=== PATIENT | female | born 1965 | race African-American/Black ===

== ENCOUNTER 2025-01-05 13:48 | Emergency (ER) | payer MEDICAID ==
[~2025-01-05] VITALS: Ht 162.6 cm; Wt 75.0 kg
[2025-01-05 14:01] VITALS: BP 126/42; TEMP 36.9; O2SAT 100
[2025-01-05 14:06] VITALS: PULSE 77; RESP 18; O2SAT 100
== END 2025-01-05 15:00 | disposition left against medical advice (07) ==
LOC: ER 13:48
DX: M25.522 Pain in left elbow (principal); Z53.21 Procedure and treatment not carried out due to patient leaving prior to being seen by health care provider